=== PATIENT | female | born 1995 | race Caucasian/White ===

== ENCOUNTER 2016-06-26 18:06 | Emergency (ER) | payer BC ==
[~2016-06-26] VITALS: Ht 162.6 cm; Wt 63.7 kg
[2016-06-26 18:13] VITALS: TEMP 36.8; Ht 162.6 cm; Wt 63.7 kg
[2016-06-26] MEDS ORDERED: FLUO10CA48 PO (19:22)
[2016-06-26] MEDS ORDERED: LEVOIUD INT UTER (19:23)
[2016-06-26] MEDS ORDERED: DiphenhydrAMINE HCL 50 MG/ML VIAL IV STA (20:11)
[2016-06-26] MEDS ORDERED: KETOROLAC TROMETHAMINE 30 MG/ML VIAL IV STA (20:11)
[2016-06-26] MEDS ORDERED: DEXAMETHASONE SOD INJ 4 MG/ML VIAL IV STA (20:11)
[2016-06-26] MEDS ORDERED: PROCHLORPERAZINE 5 MG/ML 2 ML VIAL IV STA (20:11)
[2016-06-26] MEDS ORDERED: SODIUM CHLORIDE 0.9% 1000ML 1,000 ML IV STA (20:11)
[2016-06-26] MEDS ORDERED: OPTIRAY 320 IV PRN (20:15)
--- NOTE | 2016-06-26 20:18 | EMERGENCY ROOM VISIT NOTE ---
History Report prepared by Dori: James Logan Under the Supervision of: Dr. Rodger Farley M.D. First contact with patient: 20:05 Chief Complaint: HEADACHE Stated Complaint: MIGRAINE,NAUSEA,EYE PAIN History of Present Illness The patient is a 20 year old female who presents to the Emergency Room with complaints of a persistent migraine beginning yesterday morning. She notes she woke up yesterday morning with a migraine. She took Excedrin Migraine and drank fluids, but she notes this did not relieve her symptoms. She left early from her classes and slept. She notes she had the same pain today, and took Excedrin Migraine and drank fluids again today with no relief. The patient notes she normally takes Excedrin Migraine for her migraines. She locates her pain behind her temples and behind her eyes, and notes sometimes experiencing a "shooting" pain though her head to the back of her head. She rates her pain an 8/10 in severity. She reports that she has been getting migraines everyday recently. The patient notes that the lights worsen her migraine. She adds that she has been nauseous for the past 4-5 hours. The patient has never been to the ER before, has not have imaging of her head for migraines, and has never seen a neurologist for her migraines. She denies any recent falls or trauma, fever, cough, or congestion. She also denies any chance of . Source of History: patient Onset: yesterday morning Position: head Symptom Intensity: 8/10 Quality: other ("shooting") Timing: other (persistent) Modifying Factors (Worsening): other (light) Associated Symptoms: + nausea, No cough, No fevers Note: The patient denies any congestion. Review of Systems See HPI for pertinent positives & negatives. A total of 10 systems reviewed and were otherwise negative. Past Medical & Surgical Medical Problems: (1) History of migraine Family History No pertinent family history stated. Social History Smoking Status: Never Smoker Occupation Status: [employer] student Current/Historical Medications Scheduled Fluoxetine (Prozac), 30 MG PO DAILY Levonorgestrel (Iud) (Mirena), 20 MCG INT UTER CONTINOUS Allergies Coded Allergies: No Known Allergies (Unverified , 06/26/16) Physical Exam Vital Signs Date Time Temp Pulse Resp B/P Pulse Ox O2 Delivery O2 Flow Rate FiO2 06/26/16 22:02 74 18 98/61 97 Room Air 06/26/16 20:30 71 14 95/53 97 Room Air 06/26/16 18:13 36.8 81 18 141/83 97 Room Air Physical Exam GENERAL: Patient is in no acute distress. HEENT: No acute trauma, normocephalic atraumatic, mucous membranes moist, no nasal congestion, no scleral icterus. Pupils equal and reactive to light. NECK: No stridor, no adenopathy, no meningismus, trachea is midline. LUNGS: Clear to auscultation bilaterally, no wheeze, no rhonchi, breath sounds equal. HEART: Without murmurs gallops or rubs, regular rate and rhythm. ABDOMEN: Soft, nontender, bowel sounds positive, no hernias, no peritonitis. EXTREMITIES: No cyanosis or edema, full range of motion of all the joints without pain or difficulty, no signs for acute trauma. NEUROLOGIC: Oriented x 3, no acute motor or sensory deficits, no focal weakness. No cerebellar deficits. SKIN: No rash, no jaundice, no diaphoresis Medical Decision & Procedures ER Provider Diagnostic Interpretation: Radiology results are stated below per my review and radiologist interpretation: CT ANGIOGRAPHY HEAD COMBO FINDINGS: No intra or extra-axial mass lesions are visualized. There is no CT evidence of acute cortical infarction. There is no midline shift. There is no acute hemorrhage. There is no hydrocephalus. There is no evidence of acute sinusitis. Postcontrast images reveal no evidence of intracranial branch occlusion. There are no lesions suspicious for aneurysm. There is no evidence of dural venous sinus thrombosis. There are no pathologically enhancing masses. IMPRESSION: Normal study Electronically signed by: Jean-Claude Rodas M.D. 06/26/2016 9:27 PM Dictated Date/Time: 06/26/2016 9:24 PM Laboratory Results 06/26/16 20:28 Red Blood Count 4.61, Mean Corpuscular Volume 90.5, Mean Corpuscular Hemoglobin 31.7, Mean Corpuscular Hemoglobin Concent 35.0, Mean Platelet Volume 10.3, Neutrophils (%) (Auto) 56.4, Lymphocytes (%) (Auto) 34.6, Monocytes (%) (Auto) 7.0, Eosinophils (%) (Auto) 1.4, Basophils (%) (Auto) 0.5, Neutrophils # (Auto) 4.10, Lymphocytes # (Auto) 2.52, Monocytes # (Auto) 0.51, Eosinophils # (Auto) 0.10, Basophils # (Auto) 0.04 06/26/16 20:28 Test 06/26/16 20:28 White Blood Count 7.28 K/uL (4.8-10.8) Red Blood Count 4.61 M/uL (4.2-5.4) Hemoglobin 14.6 g/dL (12.0-16.0) Hematocrit 41.7 % (37-47) Mean Corpuscular Volume 90.5 fL (80-100) Mean Corpuscular Hemoglobin 31.7 pg (25-34) Mean Corpuscular Hemoglobin Concent 35.0 g/dl (32-36) Platelet Count 330 K/uL (130-400) Mean Platelet Volume 10.3 fL (7.4-10.4) Neutrophils (%) (Auto) 56.4 % Lymphocytes (%) (Auto) 34.6 % Monocytes (%) (Auto) 7.0 % Eosinophils (%) (Auto) 1.4 % Basophils (%) (Auto) 0.5 % Neutrophils # (Auto) 4.10 K/uL (1.4-6.5) Lymphocytes # (Auto) 2.52 K/uL (1.2-3.4) Monocytes # (Auto) 0.51 K/uL (0.11-0.59) Eosinophils # (Auto) 0.10 K/uL (0-0.5) Basophils # (Auto) 0.04 K/uL (0-0.2) RDW Standard Deviation 41.5 fL (36.4-46.3) RDW Coefficient of Variation 12.4 % (11.5-14.5) Immature Granulocyte % (Auto) 0.1 % Immature Granulocyte # (Auto) 0.01 K/uL (0.00-0.02) Anion Gap 11.0 mmol/L (3-11) Est Creatinine Clear Calc Drug Dose 100.2 ml/min Estimated GFR () 127.7 Estimated GFR (Non- 110.2 BUN/Creatinine Ratio 16.8 (10-20) Calcium Level 9.1 mg/dl (8.5-10.1) Human Chorionic Gonadotropin, Qual NEG (NEG) Laboratory results reviewed by me. Medications Administered Medications (Trade) Dose Ordered Sig/Abby Route Start Time Stop Time Status Last Admin Dose Admin Prochlorperazine Edisylate 10 mg 10 mg NOW STAT IV 06/26/16 20:11 06/26/16 20:14 DC 06/26/16 20:29 10 MG Sodium Chloride (Nss 1000ml) 1,000 ml @ 999 mls/hr Q1H1M STAT IV 06/26/16 20:11 06/26/16 21:11 DC 06/26/16 20:30 999 MLS/HR Ketorolac Tromethamine (Toradol Inj) 30 mg NOW STAT IV 06/26/16 20:11 06/26/16 20:14 DC 06/26/16 20:30 30 MG Diphenhydramine HCl (Benadryl Inj) 50 mg NOW STAT IV 06/26/16 20:11 06/26/16 20:14 DC 06/26/16 20:29 50 MG Dexamethasone Sodium Phosphate (Decadron Inj) 10 mg STK-MED ONCE .ROUTE 06/26/16 20:20 06/26/16 20:24 DC 06/26/16 20:30 10 MG ED Course 2006: The patient was evaluated in room C4. A complete history and physical exam was performed. 2010: Ordered Decadron Inj 10 mg IV, Benadryl Inj 50 mg IV, Toradol Inj 30 mg IV , NSS 1,000 ml @ 999 mls/hr IV, and Compazine Inj 10 mg IV. 8: I reassessed the patient and she is feeling better. 0: Reevaluated the patient. Discussed results and discharge instructions: She verbalized understanding and agreement. The patient is ready for discharge. Medical Decision Differentials include migraine headache, tension headache, stress headache, intracranial bleed, intracranial mass, and meningitis. There is no leukocytosis or concerning anemia. No significant electrolyte abnormality or kidney failure. testing is negative. Brain CT shows no acute bleed or mass effect. There is no aneurysm by CT imaging. On exam, the patient was not febrile or toxic. There were no focal neurologic deficits. There was no meningismus. Patient received IV Toradol, IV saline, IV Compazine and IV Benadryl. She was given IV Decadron. She feels markedly improved. The patient's headaches are likely migrainous, she has had headaches for some time. I do think it is reasonable for her to see neurology, she is being referred. She was encouraged to return if worsening. Impression Primary Impression: Headache Scribe Attestation The scribe's documentation has been prepared under my direction and personally reviewed by me in its entirety. I confirm that the note above accurately reflects all work, treatment, procedures, and medical decision making performed by me. Departure Information Dispostion Home / Self-Care Patient Instructions My [facility] Additional Instructions stay well hydrated rest brain ct scan today was ok follow with [facility] and neurology return if worsening
[2016-06-26] MEDS ORDERED: DEXAMETHASONE SOD INJ 10 MG/ML VIAL ONE (20:20)
[2016-06-26 20:35] LABS: BASO % 0.5 %; BASO ABS # 0.04 K/uL (0-0.2); COMPLETE YES; EOS % 1.4 %; HEMATOCRIT 41.7 % (37-47); IG% 0.1 %; LYMPH % 34.6 %; LYMPH ABS # 2.52 K/uL (1.2-3.4); MEAN CELL VOLUME 90.5 fL (80-100); MEAN CORPUSCULAR HEMOGLOBIN 31.7 pg (25-34); MEAN PLATELET VOLUME 10.3 fL (7.4-10.4); NEUT % 56.4 %; PLATELET COUNT 330 K/uL (130-400); RED BLOOD COUNT 4.61 M/uL (4.2-5.4); WHITE BLOOD COUNT 7.28 K/uL (4.8-10.8)
[2016-06-26 20:54] LABS: PREG INTERNAL NEGATIVE QC NEG CLEAR BACKGROUND; PREG INTERNAL POSITIVE QC POS CONTROL LINE
[2016-06-26 21:04] LABS: BUN/CREATININE RATIO 16.8 (10-20); CALCIUM 9.1 mg/dl (8.5-10.1); CREATININE 0.78 mg/dl (0.60-1.20); POTASSIUM 3.2 mmol/L (3.5-5.1)
--- NOTE | 2016-06-26 21:28 | DIAGNOSTIC IMAGING REPORT ---
CT ANGIOGRAPHY HEAD COMBO CT DOSE: 1235.08 mGy.cm CLINICAL HISTORY: Severe headache TECHNIQUE: Unenhanced images were obtained through the brain. CT angiography was then performed in a dynamic helical fashion during intravenous administration of 81 cc Optiray 320. MIP imaging was obtained. COMPARISON STUDY: None. FINDINGS: No intra or extra-axial mass lesions are visualized. There is no CT evidence of acute cortical infarction. There is no midline shift. There is no acute hemorrhage. There is no hydrocephalus. There is no evidence of acute sinusitis. Postcontrast images reveal no evidence of intracranial branch occlusion. There are no lesions suspicious for aneurysm. There is no evidence of dural venous sinus thrombosis. There are no pathologically enhancing masses. IMPRESSION: Normal study Electronically signed by: Jean-Claude Rodas M.D. 06/26/2016 9:27 PM Dictated Date/Time: 06/26/2016 9:24 PM
[2016-06-26 22:02] VITALS: BP 98/61; PULSE 74; O2SAT 97
== END 2016-06-26 22:29 | disposition home or self-care (01) ==
LOC: C.EDB 18:08 → C.EDC 22:29
DX: R51 Headache (principal); Z79.899 Other long term (current) drug therapy

== ENCOUNTER 2017-08-04 22:53 | Emergency (ER) | payer BC ==
[~2017-08-04] VITALS: Ht 162.6 cm; Wt 70.4 kg
[~2017-08-04 22:53] MED LIST: FLUO10CA48 PO; LEVO1IUD2 INT UTER
[2017-08-04 22:55] VITALS: Ht 162.6 cm; Wt 70.4 kg
[2017-08-04] MEDS ORDERED: ONDANSETRON INJ 2 MG/ML 2 ML VIAL IV STA (23:17)
--- NOTE | 2017-08-04 23:23 | EMERGENCY ROOM VISIT NOTE ---
History Report prepared by Dori: Jeanine Smith Under the Supervision of: Dr. Tejal Ceron D.O. First contact with patient: 22:58 Chief Complaint: GI ASSESSMENT Stated Complaint: WHOLE BODY HURTS,VOMITING BLOOD History of Present Illness The patient is a 21 year old female who presents to the Emergency Room with complaints of persistent lower abdominal pain that began yesterday. She currently rates her pain a 4/10 in severity. She urinated blood two days ago. She reports nausea. She notes vomiting with blood present. She notes two episodes of vomit, though the second episode showed a small amount of blood present, which occurred at 1900 today. She notes a headache that began today. She notes a history of migraines while in high school, though she only gets them once a month. She reports body aches. She notes that her whole body was shaking and her friends encouraged her to come to the ED for evaluation. She denies any history of shaking before. She has a history of anxiety and takes medication for it. She denies any recent stressors. She denies any recent alcohol consumption. She also takes antidepressants and she has a history of ADD. She is currently on her menstrual cycle. She denies any history of blood clots. Source of History: patient Onset: since yesterday Position: abdomen (lower) Symptom Intensity: 4/10 Quality: other Timing: other (persistent) Associated Symptoms: + headache, + nausea, + vomiting (with blood present), + urinary symptoms (blood in urine) Note: She notes body aches and shaking. Review of Systems See HPI for pertinent positives & negatives. A total of 10 systems reviewed and were otherwise negative. Past Medical & Surgical Medical Problems: (1) ADD (attention deficit disorder) (2) Anxiety (3) History of migraine Family History Cancer Diabetes mellitus Gallbladder disease Heart disease Hypertension Kidney disease Kidney stones Lung disease Social History Smoking Status: Never Smoker Smokeless Tobacco Use: No Alcohol Use: none Drug Use: none Marital Status: single Housing Status: lives with roommate Occupation Status: [employer] student Current/Historical Medications Scheduled Amphetamine-Dextroamphetamine 10MG (Adderall Xr 10MG), 10 MG PO DAILY Control Pills ( Control Pills), 1 TAB PO DAILY Fluoxetine (Prozac), 40 MG PO DAILY Scheduled PRN Amphetamine-Dextroamphetamine 10MG (Adderall 10MG), 10 MG PO DAILY PRN for add Allergies Coded Allergies: No Known Allergies (Unverified , 08/04/17) Physical Exam Vital Signs Date Time Temp Pulse Resp B/P (MAP) Pulse Ox O2 Delivery O2 Flow Rate FiO2 08/05/17 02:05 36.7 87 19 138/82 95 08/05/17 01:13 136/85 08/05/17 00:44 101 18 121/99 95 08/04/17 23:55 84 20 122/73 100 Room Air 08/04/17 22:55 36.7 101 18 146/94 100 Room Air Physical Exam HEENT: Head - normocephalic and atraumatic Pupils are equal, round, and reactive to light. Extraocular eye muscles are intact, and sclera are anicteric. Nose - moist nasal mucosa without discharge. Mouth - moist buccal mucosa. Oropharynx is nonerythematous and there is no tonsillar exudate or edema noted. Neck: Supple; no JVD, nuchal rigidity, cervical lymphadenopathy. Heart: Regular rate and rhythm. There is a normal S1 and S2 with no murmurs, clicks, or gallops appreciated. Lungs: Clear to auscultation bilaterally with no wheezes, rales, or rhonchi. Abdomen: Soft, nondistended, with good bowel sounds. There are no palpable pulsatile masses or hepatosplenomegaly. There is no guarding, rigidity, or rebound noted. Mild suprapubic abdominal pain with palpation. Extremities: No evidence of cyanosis, clubbing, or edema. There are easily palpable peripheral pulses. Skin: warm and dry with good turgor and no rashes. Medical Decision & Procedures Laboratory Results 08/04/17 23:24 Red Blood Count 4.68, Mean Corpuscular Volume 88.5, Mean Corpuscular Hemoglobin 31.6, Mean Corpuscular Hemoglobin Concent 35.7, Mean Platelet Volume 10.6, Neutrophils (%) (Auto) 78.6, Lymphocytes (%) (Auto) 15.9, Monocytes (%) (Auto) 5.0, Eosinophils (%) (Auto) 0.1, Basophils (%) (Auto) 0.2, Neutrophils # (Auto) 6.58, Lymphocytes # (Auto) 1.33, Monocytes # (Auto) 0.42, Eosinophils # (Auto) 0.01, Basophils # (Auto) 0.02 08/04/17 23:24 Test 08/04/17 23:24 08/05/17 01:03 White Blood Count 8.38 K/uL (4.8-10.8) Red Blood Count 4.68 M/uL (4.2-5.4) Hemoglobin 14.8 g/dL (12.0-16.0) Hematocrit 41.4 % (37-47) Mean Corpuscular Volume 88.5 fL (80-100) Mean Corpuscular Hemoglobin 31.6 pg (25-34) Mean Corpuscular Hemoglobin Concent 35.7 g/dl (32-36) Platelet Count 356 K/uL (130-400) Mean Platelet Volume 10.6 fL (7.4-10.4) Neutrophils (%) (Auto) 78.6 % Lymphocytes (%) (Auto) 15.9 % Monocytes (%) (Auto) 5.0 % Eosinophils (%) (Auto) 0.1 % Basophils (%) (Auto) 0.2 % Neutrophils # (Auto) 6.58 K/uL (1.4-6.5) Lymphocytes # (Auto) 1.33 K/uL (1.2-3.4) Monocytes # (Auto) 0.42 K/uL (0.11-0.59) Eosinophils # (Auto) 0.01 K/uL (0-0.5) Basophils # (Auto) 0.02 K/uL (0-0.2) RDW Standard Deviation 39.7 fL (36.4-46.3) RDW Coefficient of Variation 12.4 % (11.5-14.5) Immature Granulocyte % (Auto) 0.2 % Immature Granulocyte # (Auto) 0.02 K/uL (0.00-0.02) Prothrombin Time 10.0 SECONDS (9.0-12.0) Prothromb Time International Ratio 1.0 (0.9-1.1) Activated Partial Thromboplast Time 25.4 SECONDS (21.0-31.0) Partial Thromboplastin Ratio 1.0 Anion Gap 10.0 mmol/L (3-11) Est Creatinine Clear Calc Drug Dose 82.3 ml/min Estimated GFR () 88.5 Estimated GFR (Non- 76.4 BUN/Creatinine Ratio 9.9 (10-20) Calcium Level 9.0 mg/dl (8.5-10.1) Total Bilirubin 0.5 mg/dl (0.2-1) Direct Bilirubin 0.1 mg/dl (0-0.2) Aspartate Amino Transf (AST/SGOT) 206 U/L (15-37) Alanine Aminotransferase (ALT/SGPT) 79 U/L (12-78) Alkaline Phosphatase 59 U/L (45-117) Total Protein 8.1 gm/dl (6.4-8.2) Albumin 4.0 gm/dl (3.4-5.0) Urine Color DK YELLOW Urine Appearance CLOUDY (CLEAR) Urine pH 8.0 (4.5-7.5) Urine Specific [place] 1.030 (1.000-1.030) Urine Protein 1+ (NEG) Urine Glucose (UA) NEG (NEG) Urine Ketones 3+ (NEG) Urine Occult Blood TRACE (NEG) Urine Nitrite NEG (NEG) Urine Bilirubin NEG (NEG) Urine Urobilinogen NEG (NEG) Urine Leukocyte Esterase NEG (NEG) Urine WBC (Auto) 1-5 /hpf (0-5) Urine RBC (Auto) 0-4 /hpf (0-4) Urine Hyaline Casts (Auto) 0 /lpf (0-5) Urine Epithelial Cells (Auto) >30 /lpf (0-5) Urine Bacteria (Auto) NEG (NEG) Urine Renal Epithelial Cells /lpf (0-5) Urine Crystals AMORPHOUS SEDIMENT (NONE Urine Mucus PRESENT (NONE PRSENT) Laboratory results per my review. Medications Administered Medications (Trade) Dose Ordered Sig/Abby Route Start Time Stop Time Status Last Admin Dose Admin Ondansetron HCl (Zofran Inj) 4 mg NOW STAT IV 08/04/17 23:17 08/04/17 23:18 DC 08/04/17 23:23 4 MG Procedure 2317: Ordered Zofran 4 mg IV ED Course 2306: Past medical records reviewed. The patient was evaluated in room A12B. A complete history and physical exam was performed. IV lock was established and labs were drawn as above. 2317: Ordered Zofran 4 mg IV 0053: I reassessed the patient at this time. She is feeling better. I reviewed her labs with her and discussed her elevated transaminases. She will provide a urine sample. 0155: I reassessed the patient at this time. She is feeling better and resting comfortably. I discussed the results and treatment plan with the patient. I answered all pertaining questions that she had. She expressed understanding and verbalized agreement. The patient will be discharged home. Medical Decision The patient is a 21 year old female who presents to the ED multiple symptoms including all over body shaking, nausea, vomiting, hematuria, and hematemesis. Differential diagnosis includes gastritis, anxiety, and UTI. Lab results showed: Normal COAGs, Stable H&H, No leukocytosis. Normal renal function. Normal Glucose. Elevated transaminases AST is 206 an ALT is 79. Her urine showed trace blood and 3+ ketones. The patient's friend accompanying her here to the ER. Upon my evaluation, she is complaining mostly of nausea. He does describe a small amount of hematemesis from 4 hours ago. She describes hematuria yesterday and some suprapubic abdominal pain. Laboratory studies were drawn as above. A urine specimen was collected. On physical exam, it appears that the patient has recently been crying. She also describes shaking. She does have a history of anxiety for which she is treated. The patient was given IV Zofran which did seem to relieve the nausea. She describes her headache at this time is only very minor. She believes that she would be able to go home and go to sleep at this time. I do not suspect an acute infectious process as the patient has no leukocytosis and no fever. Her urine was slightly concentrated. She was encouraged to take plenty of clear liquids. I have asked the patient to follow- up with her PCP if the symptoms persist. If her symptoms worsen, she can return here to the ER. Medication Reconcilliation Current Medication List: was personally reviewed by me Blood Pressure Screening Patient's blood pressure: Normal blood pressure Impression Primary Impression: Nausea Additional Impression: Anxiety Scribe Attestation The scribe's documentation has been prepared under my direction and personally reviewed by me in its entirety. I confirm that the note above accurately reflects all work, treatment, procedures, and medical decision making performed by me. Departure Information Dispostion Home / Self-Care Referrals [facility] (PCP) Forms HOME CARE DOCUMENTATION FORM, IMPORTANT VISIT INFORMATION Patient Instructions My [facility] Additional Instructions Rest. Take plenty of clear liquids and a bland diet. Follow up with [facility] for AST/ALT repeat testing Return to the ER for worsening symptoms Problem Qualifiers
[2017-08-04] MEDS ORDERED: AMPH10CA3 PO (23:25)
[2017-08-04] MEDS ORDERED: BCPILLS PO (23:25)
[2017-08-04] MEDS ORDERED: AMPH10TA2 PO (23:25)
[2017-08-04] MEDS ORDERED: FLUO40CA8 PO (23:25)
[2017-08-04 23:39] LABS: BASO % 0.2 %; BASO ABS # 0.02 K/uL (0-0.2); EOS % 0.1 %; EOS ABS # 0.01 K/uL (0-0.5); HEMATOCRIT 41.4 % (37-47); HEMOGLOBIN 14.8 g/dL (12.0-16.0); IG# 0.02 K/uL (0.00-0.02); LYMPH % 15.9 %; LYMPH ABS # 1.33 K/uL (1.2-3.4); MEAN CELL VOLUME 88.5 fL (80-100); MEAN CORPUSCULAR HEMOGLOBIN 31.6 pg (25-34); MEAN CORPUSCULAR HGB CONC 35.7 g/dl (32-36); MEAN PLATELET VOLUME 10.6 fL (7.4-10.4); MONO ABS # 0.42 K/uL (0.11-0.59); NEUT % 78.6 %; NEUT ABS # 6.58 K/uL (1.4-6.5); PLATELET COUNT 356 K/uL (130-400); RED CELL DISTRIBUTION WIDTH CV 12.4 % (11.5-14.5); RED CELL DISTRIBUTION WIDTH SD 39.7 fL (36.4-46.3); WHITE BLOOD COUNT 8.38 K/uL (4.8-10.8)
[2017-08-04 23:57] LABS: CREATININE 1.05 mg/dl (0.60-1.20); POTASSIUM 3.5 mmol/L (3.5-5.1)
[2017-08-05] LABS: TOTAL PROTEIN 8.1 gm/dl (6.4-8.2)
[2017-08-05 00:05] LABS: PTT PATIENT 25.4 SECONDS (21.0-31.0)
[2017-08-05 02:05] VITALS: BP 138/82; PULSE 87; TEMP 36.7; O2SAT 95
[2017-08-08] MEDS ORDERED: FLUO10CA24 PO ×2 (10:08→10:09)
== END 2017-08-05 02:06 | disposition home or self-care (01) ==
LOC: C.EDB 22:54 → C.EDA 08-05 02:06
DX: R11.0 Nausea (principal); F41.9 Anxiety disorder, unspecified; F98.9 Unspecified behavioral and emotional disorders with onset usually occurring in childhood and adolescence; Z79.3 Long term (current) use of hormonal contraceptives; Z79.899 Other long term (current) drug therapy

== ENCOUNTER 2017-08-05 23:26 | Inpatient (IN) | payer BC ==
[~2017-08-05] VITALS: Ht 162.6 cm; Wt 67.2 kg
[~2017-08-05 23:26] MED LIST changes: +AMPH10CA3 PO; +AMPH10TA2 PO; +BCPILLS PO; -FLUO10CA48 PO; +FLUO40CA8 PO; -LEVO1IUD2 INT UTER
[2017-08-05 23:59] LABS: BASO % 0.4 %; BASO ABS # 0.03 K/uL (0-0.2); EOS % 0.7 %; EOS ABS # 0.05 K/uL (0-0.5); HEMATOCRIT 42.2 % (37-47); HEMOGLOBIN 15.4 g/dL (12.0-16.0); IG# 0.01 K/uL (0.00-0.02); LYMPH % 21.2 %; LYMPH ABS # 1.56 K/uL (1.2-3.4); MEAN CELL VOLUME 89.4 fL (80-100); MEAN CORPUSCULAR HEMOGLOBIN 32.6 pg (25-34); MEAN CORPUSCULAR HGB CONC 36.5 g/dl (32-36); MEAN PLATELET VOLUME 10.3 fL (7.4-10.4); MONO % 10.3 %; MONO ABS # 0.76 K/uL (0.11-0.59); NEUT % 67.3 %; NEUT ABS # 4.96 K/uL (1.4-6.5); PLATELET COUNT 370 K/uL (130-400); RED CELL DISTRIBUTION WIDTH CV 12.3 % (11.5-14.5); RED CELL DISTRIBUTION WIDTH SD 40.2 fL (36.4-46.3); WHITE BLOOD COUNT 7.37 K/uL (4.8-10.8)
[2017-08-06 00:11] LABS: ALBUMIN 4.1 gm/dl (3.4-5.0); CALCIUM 9.2 mg/dl (8.5-10.1); CREATININE 0.93 mg/dl (0.60-1.20); POTASSIUM 3.6 mmol/L (3.5-5.1)
[2017-08-06 00:21] LABS: TOTAL PROTEIN 8.4 gm/dl (6.4-8.2)
--- NOTE | 2017-08-06 00:27 | EMERGENCY ROOM VISIT NOTE ---
History Report prepared by Dori: Judy Gamez Under the Supervision of: Dr. Tejal Ceron D.O. First contact with patient: 23:52 Chief Complaint: MENTAL HEALTH EVALUATION Stated Complaint: MENTAL HEALTH EVAL History of Present Illness The patient is a 21 year old female who presents to the Emergency Room with complaints of suicidal ideations that began prior to arrival. She reports that she was having some conflicts with a oscar she was romantically involved with, noting that she texted him earlier tonight saying that she wanted to kill herself. The patient admits to suicidal ideations with a plan to overdosing on medication. This oscar had contacted the police and her roommate, who found the patient crying and admitting to wanting to kill herself. According to the case technician, the patient stated that she had tried cutting herself and overdosing on medication before. The patient states that is prescribed Prozac, noting that recently she had her dose increased but she stopped taking the increased dose because she did not like the way it made her feel. She notes that she had received inpatient treatment at a facility in [place] in the past. The patient denies any drug or alcohol use. Source of History: patient Onset: prior to arrival Position: other (mental health) Quality: other (suicidal ideations) Timing: other (persistent) Review of Systems See HPI for pertinent positives & negatives. A total of 10 systems reviewed and were otherwise negative. Past Medical & Surgical Medical Problems: (1) ADD (attention deficit disorder) (2) Anxiety (3) History of migraine Family History Cancer Diabetes mellitus Gallbladder disease Heart disease Hypertension Kidney disease Kidney stones Lung disease Social History Smoking Status: Never Smoker Alcohol Use: none Drug Use: none Marital Status: single Housing Status: lives with roommate Occupation Status: [employer] student Current/Historical Medications Scheduled Amphetamine-Dextroamphetamine 10MG (Adderall Xr 10MG), 10 MG PO DAILY Control Pills ( Control Pills), 1 TAB PO DAILY Fluoxetine (Prozac), 40 MG PO DAILY Scheduled PRN Amphetamine-Dextroamphetamine 10MG (Adderall 10MG), 10 MG PO DAILY PRN for add Allergies Coded Allergies: No Known Allergies (Unverified , 08/06/17) Physical Exam Vital Signs Date Time Temp Pulse Resp B/P (MAP) Pulse Ox O2 Delivery O2 Flow Rate FiO2 08/06/17 01:09 69 16 142/92 99 Room Air 08/05/17 23:28 36.9 111 18 138/96 98 Room Air Physical Exam HEENT: Head - normocephalic and atraumatic Pupils are equal, round, and reactive to light. Extraocular eye muscles are intact, and sclera are anicteric. Nose - moist nasal mucosa without discharge. Mouth - moist buccal mucosa. Oropharynx is nonerythematous and there is no tonsillar exudate or edema noted. Neck: Supple; no JVD, nuchal rigidity, cervical lymphadenopathy. Heart: Regular rate and rhythm. There is a normal S1 and S2 with no murmurs, clicks, or gallops appreciated. Lungs: Clear to auscultation bilaterally with no wheezes, rales, or rhonchi. Abdomen: Soft, completely nontender, nondistended, with good bowel sounds. There are no palpable pulsatile masses or hepatosplenomegaly. There is no guarding, rigidity, or rebound noted. Extremities: No evidence of cyanosis, clubbing, or edema. There are easily palpable peripheral pulses. Skin: warm and dry with good turgor and no rashes. Psych: Appears tearful and depressed. Avoids eye contact. Admits to suicidal ideations with plan to overdose. Medical Decision & Procedures Laboratory Results 08/05/17 23:44 Red Blood Count 4.72, Mean Corpuscular Volume 89.4, Mean Corpuscular Hemoglobin 32.6, Mean Corpuscular Hemoglobin Concent 36.5, Mean Platelet Volume 10.3, Neutrophils (%) (Auto) 67.3, Lymphocytes (%) (Auto) 21.2, Monocytes (%) (Auto) 10.3, Eosinophils (%) (Auto) 0.7, Basophils (%) (Auto) 0.4, Neutrophils # (Auto ) 4.96, Lymphocytes # (Auto) 1.56, Monocytes # (Auto) 0.76, Eosinophils # (Auto ) 0.05, Basophils # (Auto) 0.03 08/05/17 23:44 Test 08/05/17 23:44 08/05/17 23:45 White Blood Count 7.37 K/uL (4.8-10.8) Red Blood Count 4.72 M/uL (4.2-5.4) Hemoglobin 15.4 g/dL (12.0-16.0) Hematocrit 42.2 % (37-47) Mean Corpuscular Volume 89.4 fL (80-100) Mean Corpuscular Hemoglobin 32.6 pg (25-34) Mean Corpuscular Hemoglobin Concent 36.5 g/dl (32-36) Platelet Count 370 K/uL (130-400) Mean Platelet Volume 10.3 fL (7.4-10.4) Neutrophils (%) (Auto) 67.3 % Lymphocytes (%) (Auto) 21.2 % Monocytes (%) (Auto) 10.3 % Eosinophils (%) (Auto) 0.7 % Basophils (%) (Auto) 0.4 % Neutrophils # (Auto) 4.96 K/uL (1.4-6.5) Lymphocytes # (Auto) 1.56 K/uL (1.2-3.4) Monocytes # (Auto) 0.76 K/uL (0.11-0.59) Eosinophils # (Auto) 0.05 K/uL (0-0.5) Basophils # (Auto) 0.03 K/uL (0-0.2) RDW Standard Deviation 40.2 fL (36.4-46.3) RDW Coefficient of Variation 12.3 % (11.5-14.5) Immature Granulocyte % (Auto) 0.1 % Immature Granulocyte # (Auto) 0.01 K/uL (0.00-0.02) Anion Gap 8.0 mmol/L (3-11) Est Creatinine Clear Calc Drug Dose 92.3 ml/min Estimated GFR () 102.5 Estimated GFR (Non- 88.5 BUN/Creatinine Ratio 12.4 (10-20) Calcium Level 9.2 mg/dl (8.5-10.1) Total Bilirubin 0.6 mg/dl (0.2-1) Aspartate Amino Transf (AST/SGOT) 159 U/L (15-37) Alanine Aminotransferase (ALT/SGPT) 73 U/L (12-78) Alkaline Phosphatase 61 U/L (45-117) Total Protein 8.4 gm/dl (6.4-8.2) Albumin 4.1 gm/dl (3.4-5.0) Globulin 4.3 gm/dl (2.5-4.0) Albumin/Globulin Ratio 1.0 (0.9-2) Thyroid Stimulating Hormone (TSH) 2.080 uIu/ml (0.300-4.500) Salicylates Level < 1.7 mg/dl (2.8-20) Acetaminophen Level < 2 ug/ml (10-30) Ethyl Alcohol mg/dL < 3.0 mg/dl (0-3) Urine Color DK YELLOW Urine Appearance CLEAR (CLEAR) Urine pH 5.5 (4.5-7.5) Urine Specific [place] 1.030 (1.000-1.030) Urine Protein TRACE (NEG) Urine Glucose (UA) NEG (NEG) Urine Ketones 2+ (NEG) Urine Occult Blood TRACE (NEG) Urine Nitrite NEG (NEG) Urine Bilirubin NEG (NEG) Urine Urobilinogen NEG (NEG) Urine Leukocyte Esterase NEG (NEG) Urine WBC (Auto) 10-30 /hpf (0-5) Urine RBC (Auto) 0-4 /hpf (0-4) Urine Hyaline Casts (Auto) 10-30 /lpf (0-5) Urine Epithelial Cells (Auto) >30 /lpf (0-5) Urine Bacteria (Auto) NEG (NEG) Urine Test NEG (NEG) Urine Opiates Screen NEG (NEG) Urine Methadone, Qualitative NEG (NEG) Urine Barbiturates NEG (NEG) Urine Phencyclidine (PCP) Level NEG (NEG) Ur Amphetamine/Methamphetamine POS (NEG) MDMA (Ecstasy) Screen NEG (NEG) Urine Benzodiazepines Screen NEG (NEG) Urine Cocaine Metabolite NEG (NEG) Urine Marijuana (THC) NEG (NEG) Laboratory results per my review. ED Course 0010: Past medical records reviewed. The patient was evaluated in room A6. A complete history and physical exam was performed. Labs were drawn as above. Petitioning statement was reviewed. 0112: According to the case technician, the patient would like to plead her case to avoid being involuntarily admitted as an inpatient. 0138: I reevaluated the patient and discussed test findings. She has agreed to sign in voluntarily. 0235: The patient was admitted as an inpatient to [facility]. Medical Decision The patient is a 21 year old female who presents to the ED with suicidal ideations. Differential diagnosis includes suicidal ideations, mood disorder, thought disorder, and medication noncompliance. Lab results showed: no leukocytosis, stable H&H, normal renal function and glucose, AST remains elevated at 159, normal TSH, negative alcohol, Tylenol, and Aspirin. Tox screen is positive for amphetamines. is negative and her urine appears contaminated but no obvious infection. This is a 21-year-old female patient with history of depression and anxiety who presents to the emergency department after making suicidal statements. The patient admitted to me that she was suicidal with a plan to overdose on her meds. She was brought to the emergency department by the police. They petitioned an involuntary commitment. However, the patient was willing to sign herself in voluntarily. I denied the 302 and she will go to 3 S. Medication Reconcilliation Current Medication List: was personally reviewed by me Blood Pressure Screening Patient's blood pressure: Normal blood pressure Blood pressure disposition: Did not require urgent referral Impression Primary Impression: Suicidal ideation Scribe Attestation The scribe's documentation has been prepared under my direction and personally reviewed by me in its entirety. I confirm that the note above accurately reflects all work, treatment, procedures, and medical decision making performed by me. Departure Information Dispostion Admitted as an inpatient Referrals No Doctor, Assigned (PCP) Forms HOME CARE DOCUMENTATION FORM, IMPORTANT VISIT INFORMATION Patient Instructions My [facility]
[2017-08-06] MEDS ORDERED: NURSING VERBAL MED ORDER ONE (02:45)
[2017-08-06] MEDS ORDERED: hydrOXYzine HCL 25 MG TAB PO PRN (02:45)
[2017-08-06] MEDS ORDERED: ACETAMINOPHEN 325 MG TAB PO PRN (02:45)
[2017-08-06] MEDS ORDERED: BISMUTH SUBSALICYLATE PER ML OMNICELL CHARGE PO PRN (02:45)
[2017-08-06] MEDS ORDERED: MAGNESIUM HYDROXIDE SUSP 30 ML UDC PO PRN (02:45)
[2017-08-06] MEDS ORDERED: ALUMINUM/MAGNESIUM SUSP 30 ML UDC PO PRN (02:45)
[2017-08-06] MEDS ORDERED: SODIUM CHLORIDE 0.65% NA SOLN 45 ML (OCEAN) PRN (02:45)
[2017-08-06 02:48] VITALS: O2SAT 100
[2017-08-06 04:00] VITALS: BP 118/72; PULSE 68; TEMP 36.9; Ht 162.6 cm; Wt 67.2 kg
[2017-08-06] MEDS: *ORAL CONTRACEPTIVE*ORDER AWAITING ACTION SCH ×2 (09:00→16:00)
--- NOTE | 2017-08-06 12:48 | Psychiatric History & Physical ---
History Date of Service Aug 06, 2017. Identifying Data Radha Martinez is a 21-year-old female admitted voluntarily on Aug 06, 2017 at 02:40 who presented to the emergency department with depression and suicidal thinking. Information is gathered from the patient and considered to be reliable. Chief Complaint "My anxiety got the best of me ". History of Present Illness The patient is a 21-year-old [facility] [employer], who is currently in treatment for depression and ADHD with [facility] at [facility]. Family reports that she has been under stress lately having had 4 exams last week at school. 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 She realizes that she was more anxious as she approached those exams and at her last meeting with her provider on July 23, reportedly increasing anxiety. Her provider increase Prozac to 40 mg but the patient felt that perhaps her anxiety was a little worse at that dose and so reduced it back to 20 mg daily. The patient has also been feeling physically unwell, having had an emergency department visit the previous night for what she thought was vomiting blood. They found no overt cause but suggested that the vomiting may have caused some slight tears in her esophagus. Overall she was feeling stressed at school, feeling physically unwell, was having to fend off calls from her mother who repeatedly wanted to call and talk which she did not want to do. She began having suicidal thoughts, told her roommate and her friends Williams. Apparently Fran became concerned, and called the police because she was saying she wanted to kill herself. In the emergency department notes it indicates that she did have a plan to cut or overdose. She has a history of having been hospitalized for mental health reasons and apparently having made an attempt in the past. The vp research at her apartment told her that they wanted her to go to the hospital where she could get some counseling which she thought was a good idea, having wanted to get a therapist recently anyway. In the emergency department however she was surprised when they recommended inpatient treatment and feels that the treatment was misrepresented to her. She is now feeling highly anxious about missing her school assignments and obligations. At the time I see the patient, she is minimizing her symptoms. She says that she "feels better" today and wishes she would have felt this way yesterday. She admits that she was having suicidal thoughts yesterday but denies any today. She continues to report increased anxiety, heightened now by the fact that she is missing her school assignments. She is usually able to distract herself, take a walk, have some T and denies that her anxiety rises to the level of a panic attack. She reports improved focus and concentration since having been started on Adderall. She describes her sleep as "normal". Her appetite is generally good although she has had nausea for the last several days. She experiences her anxiety with symptoms of shortness of breath, restlessness and a heavy sensation in her chest. She denies auditory or visual hallucinations. She denies any history of eating disordered behaviors. She continues to enjoy activities such as watching TV, being with friends. She denies any discrete episodes of euphoric mood, sleeplessness or pleasure seeking behaviors that would be congruent with bipolar disorder. Past Psychiatric History Current OP Treatment: psychiatrist (Bing Be PA-C at [facility]) Prior OP Treatment: psychiatrist Prior Psych Hospitalizations: other (In the state of [place]) Access to a Gun: No Suicide Attempts: No (Patient denies today, but ED notes indicate hx of cut/OD) Past Medication Trials Celexa + Abilify= tired Zyprexa + Prozac= tired, weight gain Past Medical/Surgical History History of Concussion/Seizure: No (1) No active medical problems Allergies Allergies: Coded Allergies: No Known Allergies (Unverified , 08/06/17) Home Medications Scheduled Amphetamine-Dextroamphetamine 10MG (Adderall Xr 10MG), 10 MG PO DAILY Control Pills ( Control Pills), 1 TAB PO DAILY Fluoxetine (Prozac), 40 MG PO DAILY Scheduled PRN Amphetamine-Dextroamphetamine 10MG (Adderall 10MG), 10 MG PO DAILY PRN for add Family History Cancer Diabetes mellitus Gallbladder disease Heart disease Hypertension Kidney disease Kidney stones Lung disease History of Suicide: No History of Substance Abuse: No Psychiatric History: Yes (mother with depression) Alcohol Use Alcohol Use In Past 12 Months: Yes ("Occassional") AUDIT Total Score: 1 Smoking Use Smoking Status: Never Smoker Substance History Denies Personal History Lives in: in an apt in [place] with roommate Childhood: Raised by both parents, mother is an RN, father is a plastics sewage plant operator. 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) Relationship History: never Children: none Legal History: none Psychological Trauma History: Denies Hx Traumatic Event, Emotional Abuse Review of Systems Constitutional: denies no symptoms reported, denies see HPI, denies chills, denies diaphoresis, denies fever, denies malaise, denies weakness, denies other Eyes: denies: no symptoms, as stated in HPI, eye pain, tearing, itching, redness, discharge, double vision, visual changes, blurred vision, photophobia, other ENT: denies: no symptoms reported, see HPI, ear pain, ear discharge, loss of hearing, tinnitus, nasal pain, nasal congestion, rhinorrhea, epistaxis, sore throat, stidor, throat swelling, mouth pain, mouth swelling, dental pain, gum swelling, other Cardiovascular: denies: no symptoms reported, see HPI, chest pain, chest tightness, chest pressure, diaphoresis, palpitations, syncope, other Respiratory: denies: no symptoms reported, see HPI, cough, orthopnea, short of breath, stridor, wheezing, sputum production, cyanosis, CAI, PND, other Gastrointestinal: denies no symptoms reported, denies see HPI, denies abdominal pain, denies constipation, denies diarrhea, denies nausea, denies vomiting, denies other Genitourinary - Female: denies: no symptoms, see HPI, rash, amenorrhea, dysmenorrhea, menorrhagia, metrorrhagia, , vaginal bleeding, vaginal itching, vaginal discharge, vulvadynia, other Musculoskeletal: denies no symptoms reported, denies see HPI, denies back pain , denies gout, denies joint pain, denies joint swelling, denies muscle pain, denies muscle stiffness, denies neck pain, denies other Integumentary: denies no symptoms reported, denies see HPI, denies change in color, denies change in hair/nails, denies dryness, denies lesions, denies lumps , denies rash, denies other Neurologic: denies: no symptoms, see HPI, headache, numbness, paresthesias, pre -existing deficit, seizure, tingling, tremors, general weakness, tics, focal weakness, vertigo, lethargy, memory loss, dizziness, other Endocrine: denies: no symptoms, as stated in HPI, cold intolerance, heat intolerance, hair changes, goiter, polydipsia, polyuria, skin changes, other Hematologic / Lymphatic: denies: no symptoms, as stated in HPI, abnormal clotting, adenopathy, anemia, easy bleeding, easy bruising, gums bleeding, petechiae, other Examination Physical Examination Exam performed by Dr. Ceron in the ED has been reviewed and accepted as medical clearance for our unit. Vital Signs Vital Signs Past 12 Hours Date Time Temp Pulse Resp B/P (MAP) Pulse Ox O2 Delivery O2 Flow Rate FiO2 08/06/17 04:00 36.9 68 16 118/72 08/06/17 02:48 77 16 125/77 100 08/06/17 01:09 69 16 142/92 99 Room Air Laboratory Results Last 24 Hours Test 08/05/17 23:44 08/05/17 23:45 White Blood Count 7.37 K/uL Red Blood Count 4.72 M/uL Hemoglobin 15.4 g/dL Hematocrit 42.2 % Mean Corpuscular Volume 89.4 fL Mean Corpuscular Hemoglobin 32.6 pg Mean Corpuscular Hemoglobin Concent 36.5 g/dl Platelet Count 370 K/uL Mean Platelet Volume 10.3 fL Neutrophils (%) (Auto) 67.3 % Lymphocytes (%) (Auto) 21.2 % Monocytes (%) (Auto) 10.3 % Eosinophils (%) (Auto) 0.7 % Basophils (%) (Auto) 0.4 % Neutrophils # (Auto) 4.96 K/uL Lymphocytes # (Auto) 1.56 K/uL Monocytes # (Auto) 0.76 K/uL Eosinophils # (Auto) 0.05 K/uL Basophils # (Auto) 0.03 K/uL RDW Standard Deviation 40.2 fL RDW Coefficient of Variation 12.3 % Immature Granulocyte % (Auto) 0.1 % Immature Granulocyte # (Auto) 0.01 K/uL Sodium Level 137 mmol/L Potassium Level 3.6 mmol/L Chloride Level 105 mmol/L Carbon Dioxide Level 24 mmol/L Anion Gap 8.0 mmol/L Blood Urea Nitrogen 12 mg/dl Creatinine 0.93 mg/dl Est Creatinine Clear Calc Drug Dose 92.3 ml/min Estimated GFR () 102.5 Estimated GFR (Non- 88.5 BUN/Creatinine Ratio 12.4 Random Glucose 83 mg/dl Calcium Level 9.2 mg/dl Total Bilirubin 0.6 mg/dl Aspartate Amino Transf (AST/SGOT) 159 U/L Alanine Aminotransferase (ALT/SGPT) 73 U/L Alkaline Phosphatase 61 U/L Total Protein 8.4 gm/dl Albumin 4.1 gm/dl Globulin 4.3 gm/dl Albumin/Globulin Ratio 1.0 Thyroid Stimulating Hormone (TSH) 2.080 uIu/ml Salicylates Level < 1.7 mg/dl Acetaminophen Level < 2 ug/ml Ethyl Alcohol mg/dL < 3.0 mg/dl Urine Color DK YELLOW Urine Appearance CLEAR Urine pH 5.5 Urine Specific [place] 1.030 Urine Protein TRACE Urine Glucose (UA) NEG Urine Ketones 2+ Urine Occult Blood TRACE Urine Nitrite NEG Urine Bilirubin NEG Urine Urobilinogen NEG Urine Leukocyte Esterase NEG Urine WBC (Auto) 10-30 /hpf Urine RBC (Auto) 0-4 /hpf Urine Hyaline Casts (Auto) 10-30 /lpf Urine Epithelial Cells (Auto) >30 /lpf Urine Bacteria (Auto) NEG Urine Test NEG Urine Opiates Screen NEG Urine Methadone, Qualitative NEG Urine Barbiturates NEG Urine Phencyclidine (PCP) Level NEG Ur Amphetamine/Methamphetamine POS MDMA (Ecstasy) Screen NEG Urine Benzodiazepines Screen NEG Urine Cocaine Metabolite NEG Urine Marijuana (THC) NEG Mental Examination During interview pt is: alert and oriented, cooperative Appearance: appropriately dressed, appropriately groomed Eye contact is: good Motor behavior is: steady gait & station, no abnormal motor movements Speech: normal in rate, rhythm & volume Affect: depressed, blunted, anxious Mood is: depressed, anxious Thought process: goal directed Thought content: reality based without delusions Suicidal thought are: present, Plan: denied, Intent: denied Homicidal thoughts are: denied Hallucinations: denies auditory, denies visual Cognition: memory grossly intact, attention grossly intact, language grossly intact Intelligence estimated to be: average Insight: impaired Judgement: impaired Impression / Recommendations Impression 21-year-old [facility] student admitted voluntarily with depression and suicidality. She is tending to minimize her symptoms today despite reports in the emergency department that she had made specific suicidal statements with a plan. She has a history of hospitalization, at least one suicide attempt in the past. She felt that increasing Prozac to 40 mg perhaps made her more anxious although believes that the anxiety could have been pre-existing as she had been reporting anxiety even prior to her exams. She agrees to increase her Prozac slightly to 30 mg today rather than going directly to 40 mg. If she cannot tolerate 30 mg and consideration will be given to a different agent. She is anxious about missing out on all of the schoolwork while here and I have told her that we will do our work and mitigate his many risk factors as quickly as we can. At this time however, the patient requires inpatient mental health treatment due to the severity of her condition and the risk for self-harm if discharged. Inventory Assets Strengths: Intelligence, willingness to engage in treatment Needs: Increase healthy coping strategies Risk Factors Assessment /single/: Yes Higher / Fall in social status: No Access to guns: No Health problems: No Mental Health Diagnoses: Yes Substance use disorders: No Previous attempt: Yes Previous psychiatric stay: Yes Smoker: No Protective Factors Assessment : No Responsible for young children: No Employed: No Stable relationships: Yes Supportive family: Yes Good rapport with provider: Yes Recommendations (1) Major depressive disorder, recurrent severe without psychotic features 08/06 - Increase Prozac to 30 mg. daily. If not able to tolerate, consider a different agent - Family meeting - Q 15 min checks for safety - Encourage participation in group and individual counseling - Obtain records from and coordinate care with [facility] - Refer for therapy - Assist the patient to learn and utilize additional healthy coping strategies. - Screening labs WNL with the exception of elevated AST. Will check tomorrow to trend. May need follow up as an OP Dr. Giselle Keane has personally been involved in the review of this case and development of these recommendations. CPT Code Initial Hospital Care: 14575
[2017-08-06] MEDS ORDERED: FLUOXETINE HCL 10 MG CAP PO ONE (13:15)
[2017-08-06] MEDS: ETH ESTRADIOL PO SCH (20:55)
[2017-08-06] MEDS: NORETHINDRONE PO SCH (20:55)
[2017-08-06] MEDS: hydrOXYzine HCL 25 MG TAB PO PRN (22:18)
[2017-08-07 06:47] VITALS: BP_SYST 105; BP_SYST 106; BP_DIAS 68; BP_DIAS 72; PULSE 60; PULSE 79; TEMP 36.8
[2017-08-07] MEDS: ETH ESTRADIOL PO SCH (08:35)
[2017-08-07] MEDS: NORETHINDRONE PO SCH (08:35)
[2017-08-07] MEDS: FLUOXETINE HCL 10 MG CAP PO SCH (08:35)
--- NOTE | 2017-08-07 11:11 | Psychiatric Progress Notes ---
Progress Note Date of Service Aug 07, 2017. Interval History 21-year-old [employer] [facility] student admitted voluntarily with depression and suicidality. Chief Complaint "Fine". Subjective Patient was seen & assessed interval progress reviewed with Treatment Team. The patient says that she is feeling better today after having a visit with her parents and having some of her belongings brought in. She has been thinking about what caused her to be so emotional leading to hospitalization, and she thinks that it occurred because she was under more stress than usual, had not been sleeping well, and didn't want to be a lone. When her friend Williams said that he had to leave because he had things to do, she got even more upset because he didn't recognize that she needed to be with someone. Since admission she has had no further thoughts of suicide. She was anxious when her parents arrived yesterday, but she felt she handled it well, which she thought was a good sign. 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 She is agreeable to seeing a therapist, and has been trying to get an appt with one at [facility], but has been playing phone tag with the intake department. Review of Systems Constitutional: No fever, No chills, No sweats, No weight loss, No weakness, No fatigue, No problem reported Respiratory: No cough, No sputum, No wheezing, No shortness of breath, No dyspnea on exertion, No dyspnea at rest, No hemoptysis, No problem reported Cardiovascular: No chest pain, No orthopnea, No PND, No edema, No claudication , No palpitations, No problem reported Abdomen: No pain, No nausea, No vomiting, No diarrhea, No constipation, No GI bleeding, No problem reported Musculoskeletal: No joint pain, No muscle pain, No swelling, No calf pain, No problem reported Neurologic: No memory loss, No paralysis, No weakness, No numbness/tingling, No vertigo, No balance problems, No problem reported Psychiatric: + anxiety Integumentary: No rash, No itch, No new/changing skin lesions, No color change , No bleeding, No problem reported Sleep Information Total Hours of Sleep: 6.00 Meal Information Percent of Breakfast Consumed: 100 Percent of Lunch Consumed: 100 Percent of Dinner Consumed: 100 Mental Status Exam During interview pt is: alert and oriented, cooperative Appearance: appropriately dressed, appropriately groomed Eye contact is: good Motor behavior is: steady gait & station, no abnormal motor movements Speech: normal in rate, rhythm & volume Affect: depressed, blunted, anxious Mood is: depressed, anxious Thought process: goal directed Thought content: reality based without delusions Suicidal thought are: present, Plan: denied, Intent: denied Homicidal thoughts are: denied Hallucinations: denies auditory, denies visual Cognition: memory grossly intact, attention grossly intact, language grossly intact Intelligence estimated to be: average Insight: impaired Judgement: impaired Impression ADjusting to being on the unit, and better able to focus on the issues that brought her in. Will have a family meeting this afternoon. Tolerating increase in Prozac to 30 mg. without side effects Plan (1) Major depressive disorder, recurrent severe without psychotic features 08/06 - Increase Prozac to 30 mg. daily. If not able to tolerate, consider a different agent - Family meeting - Q 15 min checks for safety - Encourage participation in group and individual counseling - Obtain records from and coordinate care with [facility] - Refer for therapy - Assist the patient to learn and utilize additional healthy coping strategies. - Screening labs WNL with the exception of elevated AST. Will check tomorrow to trend. May need follow up as an OP 08/07 - AST trending down to 66 this AM - Continue current meds - Patient will need a therapist at [facility] post discharge - Family meeting this afternoon Discharge / Aftercare Planning Primary Care Physician: Name: [facility] ( [facility] ) Therapist: Name: "I should have gotten one" Visit Code E&M Code: 12255 Inventory Assets Strengths: Intelligence, willingness to engage in treatment Needs: Increase healthy coping strategies Risk Factors Assessment /single/: Yes Higher / Fall in social status: No Health problems: No Mental Health Diagnoses: Yes Substance use disorders: No Previous attempt: Yes Previous psychiatric stay: Yes Smoker: No Protective Factors Assessment : No Responsible for young children: No Employed: No Stable relationships: Yes Supportive family: Yes Good rapport with provider: Yes Data Vital Signs Last 24 Hrs: Date Time Temp Pulse Resp B/P (MAP) Pulse Ox O2 Delivery O2 Flow Rate FiO2 08/07/17 06:47 36.8 60 16 106/72 79 105/68 Meds Administered Last 24 Hrs: Meds Administered (Past 24Hrs) Medications (Trade) Dose Ordered Sig/Abby Route Start Time Stop Time Status Last Admin Dose Admin Hydroxyzine HCl (Vistaril Tab) 50 mg HSZ PRN PO 08/06/17 02:45 09/05/17 02:44 08/06/17 22:18 50 MG Fluoxetine HCl (Prozac Cap) 30 mg QAM PO 08/07/17 09:00 09/06/17 08:59 08/07/17 08:35 30 MG Fluoxetine HCl (Prozac Cap) 30 mg 1315 ONCE PO 08/06/17 13:15 08/06/17 13:16 DC 08/06/17 13:43 30 MG Lab Results Last 24 Hrs: Last 24 Hours Test 08/07/17 07:12 Aspartate Amino Transf (AST/SGOT) 66 U/L
[2017-08-07] MEDS: hydrOXYzine HCL 25 MG TAB PO PRN (22:46)
[2017-08-08 06:37] VITALS: BP_SYST 106; BP_SYST 93; BP_DIAS 56; BP_DIAS 64; PULSE 68; PULSE 86; TEMP 36.8
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
[2017-08-08] MEDS: FLUOXETINE HCL 10 MG CAP PO SCH (09:41)
[2017-08-08] MEDS: ETH ESTRADIOL PO SCH (09:42)
[2017-08-08] MEDS: NORETHINDRONE PO SCH (09:42)
[2017-08-08] MEDS ORDERED: FLUO10CA24 PO ×2 (10:08→10:09)
== END 2017-08-08 11:22 | disposition home or self-care (01) | DRG 885 ==
LOC: C.EDB 23:27 → C.MHU 08-06 02:40
PROVIDERS: ADMIT Psychiatry & Neurology Psychiatry; ATTEND Psychiatry & Neurology Psychiatry
DX: F33.2 Major depressive disorder, recurrent severe without psychotic features (principal); R45.851 Suicidal ideations; F90.9 Attention-deficit hyperactivity disorder, unspecified type; F41.9 Anxiety disorder, unspecified; Z91.5 Personal history of self-harm; Z81.8 Family history of other mental and behavioral disorders; Z79.3 Long term (current) use of hormonal contraceptives; Z79.899 Other long term (current) drug therapy